=== PATIENT | male | born 1945 | race Caucasian/White ===

== ENCOUNTER 2016-05-21 12:30 | Emergency (ER) | payer MEDICARE, OTHER | END 2016-05-21 17:01 | disposition home or self-care (01) | LOC: ER 12:30 | DX: M25.512 Pain in left shoulder (principal); R07.2 Precordial pain; K21.9 Gastro-esophageal reflux disease without esophagitis; E78.00 Pure hypercholesterolemia, unspecified; I10 Essential (primary) hypertension; Z79.899 Other long term (current) drug therapy; Z79.82 Long term (current) use of aspirin | CPT/HCPCS: 36415; 80053; 82553; 84484; 85025; 93005 ==